=== PATIENT | female | born 2000 | race Caucasian/White ===

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

== ENCOUNTER 2025-02-06 01:20 | Emergency (ER) | payer OTHER, SELFPAY ==
--- NOTE | ~2025-02-06 | CT_ITS ---
CT of the Abdomen and Pelvis: Indication: Abdominal pain, status post Technique: 2.5 mm axial scans were obtained through the abdomen and pelvis following intravenous adm inistration of 100 cc of Omnipaque 350. Dose reduction technique was used on this scan by utilizing a utomated exposure control and iterative reconstruction technique. The dose-length product (DLP) was 1 478.52 mGy-cm. Findings: Scans through the lung bases are unremarkable. The liver, spleen, pancreas, gallbladder, adrenals and right kidney are within normal limits. 2 mm no nobstructing left renal stone present. No evidence of aortic aneurysm. No lymphadenopathy. No bowel obstruction or bowel wall thickening. There is no evidence to suggest acute appendicitis. Images through the pelvis were performed. Urinary bladder unremarkable. Uterus is prominent, compatib le with recent section. Probable small amount of blood products in the endometrial cavity. S mall fluid collections present along the anterior abdominal wall at the lower abdomen, compatible wit h small seromas related to recent section. Impression: Probable expected post section changes with prominent uterus and small amount of blood produ cts in the endometrial cavity, as well as small seromas along the lower anterior abdominal wall. 2 mm nonobstructing left renal stone. Reviewed, dictated and finalized at location M. Impression: Probable expected post section changes with prominent uterus and small amount of blood products in the endometrial cavity, as well as small seromas a long the lower anterior abdominal wall. 2 mm nonobstructing left renal stone.
--- OUTSIDE RECORDS SUMMARY | 2025-02-06 01:23 | XMS_ITS | Clinical Summary ---
Author Organization [facility] [employer] Address [address] [place] [address] Care Team Providers Care Surgical Coordinator Name Role Phone Nicholas Howell MD Primary Care Provider Source Comments [facility] [employer] [facility],non-owned Affiliates and Associated Physician Practices is amultiple site organization consisting of ambulatory clinics and hospital sitesin [place], [place], [place] and [place]. This disclosure is being madepursuant to the Care Everywhere program and may not contain all information available regarding this patient. Last updated 18.[employer] [facility] Allergies No known active allergies Medications * Be aware that medications may not be up to date on this document. Alwaysverify current medications with the patient. naproxen sodium (ALEVE) 220 MG tabletIndication s:Knee pain Take 220 mg by mouth 2 times daily as needed. 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 Gender Identity Not on file Sexual Orientation Not on file Plan of Treatment Health Maintenance Due Date Last Done Comments HIV SCREENING 2016 HPV VACCINE (1 - 3-dose series) 2016 CHLAMYDIA/GONORRHEA SCREENING 2017 MENINGOCOCCAL (Group B) VACC INE SHARED DECISION-MAKING (1 of 2 - Standard) 2017 HEPATITIS C SCREENING 04/11/2019 DTAP/TDAP/TD VACCINES (1 - Tdap) 2020 HEPATITIS B VACCINE (1 of 3 - 19+ 3-dose series) 2020 COVID-19 VACCINE (1 - 2023-2 5 season) 2024 DEPRESSION SCREENING 09/13/2024 INFLUENZA VACCINE (Season Ended) 2025 ZOSTER VACCINE (1 of 2) 2051 HIB VACCINE Aged Out No longer eligi ble based on patient's age to complete this topic MENINGOCOCCAL GROUPS A/C/Y/W VACCINE Aged Out No longer eligible b ased on patient's age to complete this topic PNEUMOCOCCAL VACCINE Aged Out No long er eligible based on patient's age to complete this topic Care Teams Surgical Coordinator Relationship Specialty Start Date End Date Nicholas Howell MD [address] [place] [id number] PCP - General Family Medicine 08/15/12
--- OUTSIDE RECORDS SUMMARY | 2025-02-06 01:23 | XMS_ITS | Referral Summary ---
Author Organization [facility] Address [address] [place] [id number] Care Team Providers Care Title Checker Name Role Phone Ciarra Herrera MD Primary Care Provider Allergies No known active allergies Medications sertraline (ZOLOFT) 100 mg tablet Take 1 tablet (100 mg total) by mouth daily 01/28/2024 Active phentermine 37.5 mg capsule Take 1 capsule (37.5 mg total) by mouth daily 04/02/2024 Active Active Problems No known active problems Social History Tobacco Use Types Packs/Day Years Used Date Smoking Tobacco: Never Assessed Comments Unknown Sex and Gender Information Value Date Recorded Sex Assigned at Not on file Legal Sex Female 4:01 PM CDT Gender Identity Not on file Sexual Orientation Not on file Last Filed Vital Signs Vital Sign Reading Time Taken Comments Blood Pressure 112/78 05/18/2024 11:00 AM CDT Pulse 102 05/18/2024 11:00 AM CDT Temperature 36.8 C (98.3 F) 05/18/2024 11:00 AM CDT Respiratory Rate 18 05/18/2024 11:00 AM CDT Oxygen Saturation 97% 05/18/2024 11:00 AM CDT Inhaled Oxygen Concentration - - Weight 103 kg (227 lb 1.6 oz) 05/18/2024 11:00 A M CDT Height 160 cm (5' 2.99) 05/18/2024 11:00 AM CDT Body Mass Index 40.24 05/18/2024 11:00 AM CDT Plan of Treatment Not on file Insurance [facility] Address: [address] [place] [id number] [facility] [employer] Address: [address] [place] [id number] Care Teams Title Checker Relationship Specialty Start Date End Date Ciarra Herrera MD [address] [place] [address] PCP - General Family Medicine 05/03/24
--- OUTSIDE RECORDS SUMMARY | 2025-02-06 01:23 | XMS_ITS | Clinical Summary ---
Author Organization [facility] Address [address] [place] [phone] Care Team Providers Care Air Pollution Specialist Name Role Phone Ciarra Herrera MD Primary [...] on file Sexual Orientation Not on file Obstetrics History Last Filed Vital Signs Vital Sign Reading [...] 05/18/2024 11:00 AM CDT Plan of Treatment Health Maintenance Due Date Last Done Comments Cervical Cancer Screening 2001 Depression Screening 2001 Hepatitis C Screening 2001 Varicella Vaccines (1 of 2 - 13+ 2-dose series) 2014 HPV Vaccines (1 - 3-dose series) 2016 Meningococcal B Vaccine (1 o f 2 - Standard) 2017 Regular Well Visit/Exam 18-64 2019 Influenza Vaccine (Season Ended) 2025 08/19/2020, 07/03/2020, 06/28/2009 DTaP/Tdap/Td Vaccine (9 - Td or Tdap) 06/13/2030 06/13/2020, 05/08/2020, 05/05/2012, Additional history exists Hepatitis B Screening Completed 11/03/2002 , 2001, 2001 Pneumococcal vaccine <65 Completed 003, 04/18/2002, 2001, Additional history exists Insurance [facility]US [facility] Care Teams Air Pollution Specialist Relationship Specialty Start Date End Date Ciarra Herrera MD [address] [place] [address] PCP - General Family Medicine 05/03/24
[2025-02-06 01:30] VITALS: BP 140/91; PULSE 73; RESP 19; TEMP 36.7; O2SAT 100
--- NOTE | 2025-02-06 01:31 | ED_ITS ---
HPI - Abdominal Pain General Chief Complaint: Abdominal Pain Stated Complaint: abd pain post c section Time Seen by Provider: 02/06/25 01:29 Source: patient and family Mode of arrival: ambulatory Limitations: no limitations History of Present Illness HPI narrative: female who is approximately 1 week post op from section presents with low abdominal pain. Had had a wound vac in place that was due to come out today/tomorrow but the dressing got wet and it was removed early. Previous delivery had been vaginal. Indication for C section was the size of the baby (9lb, 1 oz). She reports a complication of hemorrhage at the time of C section but did not require blood transfusion. No feverss, chills, nausea, or vomiting. Delivered [facility] Lily Huang Dr/Brisa. Has had increasing pain over the past 2 days making it dificult to stand. Described as a burning/sharp sensation along bilateral sides of incision scar. LBM yesterday. No constipation. Normal vaginal discharge/lochia, denies it being foul smelling. Discharged with gabapentin 3 days and oxy which she states didn't help. She states she didn't want to take the oxy, still has a few left. Related Data Allergies Allergy/AdvReac Type Severity Reaction Status Date / Time No Known Allergies Allergy Unknown Unverified 01/06/13 18:08 [facility] Past Medical History Medical History History of vaginal delivery Surgical History Surgical History History of section 01/29/25 Social History Social History Living arrangements: with family Additional living arrangements comments: partner and 2 children Exam 2 Narrative: GENERAL: Well-appearing, well-nourished, and in no acute distress. HEAD: Normocephalic, atraumatic. EYES: Non injected, non icteric ENT: Nares clear, no rhinorrhea or epistaxis. Gross auditory acuity intact. NECK: Supple. No meningismus. CHEST: Speaking in full sentences. No respiratory distress. HEART: Regular rate and rhythm. . ABDOMEN: Obese but Soft, nondistended. Incision scar well healing without erythema, induration, purulent discharge. Patient tender at the lateral most areas of this horizontal incision site. Not peritoneal EXTREMITIES: Normal range of motion. No lower extremity edema. SKIN: Warm, dry, no rash. NEURO: No focal deficits. Alert and oriented. Answering questions. Following commands. Normal speech without aphasia or dysarthria. PSYCH: Congruent mood and affect. Course Vital Signs Vital signs: Vital Signs Temperature 98.1 F 02/06/25 01:30 Pulse Rate 73 02/06/25 01:30 Respiratory Rate 19 02/06/25 01:30 Blood Pressure 140/91 H 02/06/25 01:30 Pulse Oximetry 100 02/06/25 01:30 Oxygen Delivery Room Air 02/06/25 01:30 Temperature 98 F 02/06/25 08:52 Pulse Rate 74 02/06/25 08:52 Respiratory Rate 18 02/06/25 08:52 Blood Pressure 115/72 02/06/25 08:52 Pulse Oximetry 99 02/06/25 08:52 Oxygen Delivery Room Air 02/06/25 01:30 MDM - Abdominal Pain MDM Narrative Medical decision making narrative: Patient presents with post operative abdominal pain after a C section approximately 1 week ago performed at [facility] Sal with Lily Denny/Brisa. In the emergency department she is afebrile with acceptable vital signs. No leukocytosis. She has a normocytic anemia with no prior for comparison. Patient had initially stated her vaginal discharge seems similar to after her 1st delivery, normal lochia. Upon return from urinating, she does tell the nurse that it seems different now. States she noticed it had some green in it. Urinalysis slightly abnormal but without marked infection. Reflexes to culture. She does endorse some dysuria in urinary urgency/frequency but denies any hematuria. Given questionably symptomatic, will treat, but await ct abd / pelvis to see if broader spectrum antibiotics may be indicated. Patient having pain again. Additional analgesic medication ordered. Patient is already scheduled to follow up with her Ob Gyne later today. Spoke with [facility] Dr Uziel Bautista content producer 07:43: Concurs with management including keeping today's follow up appointment and deferring given antibiotics until urine culture results. A disc of imaging was made for patient to take to appointment today. Upon discharge, patient did want discuss further. I informed her that I had talked with the on-call Ob Gyne. She does clarify that she had said that she didn't want to take her oxy but she had and only had 1 pill and knows she is going to be in pain when she stands. Will prescribe additional oxy and acetaminophen. Also prescribed docusate. Differential Diagnosis Differential diagnosis: Likely abdominal pain, constipation and other (routine incision pain, seroma/hematoma/complication such as abscess; considered endometritis; considered anemia ) Lab Data Attestation: I reviewed the patient's lab results. 02/06/25 01:44 02/06/25 01:44 Labs: Lab Results 02/06/25 02/06/25 02/06/25 Range/Units 01:44 02:53 02:55 WBC 7.8 (4.5-10.0) K/mm3 RBC 3.28 L (4.2-5.4) M/mm3 Hgb 8.9 L (12.0-15.0) g/dL Hct 29.1 L (37.0-47.0) % MCV 88.7 (80-100) fl MCH 27.1 (26-34) pg MCHC 30.6 L (32-36) g/dl RDW 13.2 (11.5-14.5) % Plt Count 264 (150-375) k/mm3 MPV 9.6 (7.4-10.4) fl Immature Gran % (Auto) 1.2 H (0-0.5) % Neut % (Auto) 58.4 (45.5-73.1) % Lymph % (Auto) 30.3 (18.3-44.2) % [place] % (Auto) 7.6 (2.6-8.5) % Eos % (Auto) 2.2 (0-4.4) % Baso % (Auto) 0.3 (0.2-1.2) % Lymph # (Auto) 2.36 (0.9-3.2) K/mm3 [place] # (Auto) 0.6 (0.1-0.6) K/mm3 Eos # (Auto) 0.2 (0-0.3) K/mm3 Baso # (Auto) 0.0 (0.0-0.1) K/mm3 Abs Immat Gran (auto) 0.09 H (0.00-0.031) K/mm3 Absolute Neuts (auto) 4.6 (1.3-6.7) K/mm3 Absolute Nucleated RBC 0.000 (0.0-0.012) K/mm3 Nucleated RBC % 0.0 (0.0-0.2) % Sodium 136 L (137-145) mmol/L Potassium 4.1 (3.4-5.0) mmol/L Chloride 106 (98-107) mmol/L Carbon Dioxide 23 (22-30) mmol/L Anion Gap 7 (4-12) mmol/L BUN 26 H (7-17) mg/dL Creatinine 0.65 L (0.7-1.0) mg/dL Estim Creat Clear Calc 134 ml/min Estimated GFR > 60 (59 - ) Glucose 89 (65-110) mg/dL Calcium 8.8 (8.4-10.2) mg/dL Total Bilirubin 0.3 (0.2-1.3) mg/dL AST 25 (14-36) U/L ALT 20 (6-35) U/L Alkaline Phosphatase 123 (38-126) U/L Total Protein 7.0 (6.3-8.2) g/dL Albumin 3.7 (3.5-5.1) g/dL Lipase 123 (23-300) U/L Urine Color Yellow (Yellow) Urine Appearance Clear (Clear) Urine pH 5.5 (5.0-9.0) Ur Specific [place] 1.026 (1.001-1.035) Urine Protein Negative (Negative) mg/dL Urine Glucose (UA) Negative (Negative) mg/dL Urine Ketones Negative (Negative) mg/dL Ur Blood (Man) 2+ H (Negative) Urine Nitrate Negative (Negative) Urine Bilirubin Negative (Negative) Urine Urobilinogen 1.0 (<2.0) mg/dL Leukocyte Esterase Rfl Trace H (Negative) CRYS/UL Urine RBC 11-20 H (0-2) /hpf Urine WBC 6-10 H (0-3) /hpf Ur Squamous Epith Cells Occasional (Few) /hpf Urine Bacteria Rare /hpf Urine Casts 0-2 POC Urine HCG, Qual Negative (Negative) Imaging Data Radiologist's impression: ITS Impressions Abdomen/Pelvis CT 02/06/25 06:29 Impression: Probable expected post section changes with prominent uterus and small amount of blood products in the endometrial cavity, as well as small seromas along the lower anterior abdominal wall. 2 mm nonobstructing left renal stone. Discharge Plan Discharge Clinical Impression: Normocytic anemia, Pain following delivery, Abnormal urinalysis, Abdominal wall seroma Patient Disposition: Home Condition: Stable Instructions: Antibiotic Form, Anemia (ED), Seroma (DC) Additional Instructions: I discussed you with The on-call Ob Gyne for Dr Ledezma's practice who confirmed that you should keep your already scheduled Post-operative/C section follow up appointment with your ObGyn today. Continue taking the pain medications you were prescribed. You had some slight abnormalities on your urinalysis but will await the culture to see if it appears to be a true urinary tract infection which the OBGYN agreed with. You are being given a disc with your images from the CT scan that was performed today that you can take with you. Return to the emergency department with any new, worsening, or unmanaged symptoms. While on opiate medications, you should be on a bowel regimen (e.g. stool softer). If one was not prescribed already, a prescription has been provided. Patient Language: German Prescriptions: New docusate sodium 100 mg capsule 100 mg PO DAILY Qty: 14 0RF acetaminophen 500 mg capsule 1,000 mg PO Q6H PRN (Reason: pain) Qty: 30 0RF oxycodone 5 mg capsule 5 mg PO Q8H PRN (Reason: pain) Qty: 10 0RF Follow-up/Referrals: UNKNOWN,DOCTOR [Non-Staff] - Stand Alone Forms: Work/School Release IP Time of Disposition: 07:50
[2025-02-06 01:49] LABS: Basophils Percent Auto 0.3 % (0.2-1.2); Eosinophils Absolute Auto 0.2 K/mm3 (0-0.3); Eosinophils Percent Auto 2.2 % (0-4.4); Hematocrit 29.1 % (37.0-47.0); Hemoglobin 8.9 g/dL (12.0-15.0); Immature Granulocyte Absolute 0.09 K/mm3 (0.00-0.031); Immature Granulocyte Percent A 1.2 % (0-0.5); Lymphocytes Absolute Auto 2.36 K/mm3 (0.9-3.2); Lymphocytes Percent Auto 30.3 % (18.3-44.2); Mean Corpuscular HGB Conc 30.6 g/dl (32-36); Mean Corpuscular Hemoglobin 27.1 pg (26-34); Mean Corpuscular Volume 88.7 fl (80-100); Mean Platelet Volume 9.6 fl (7.4-10.4); Monocytes Absolute Auto 0.6 K/mm3 (0.1-0.6); Monocytes Percent Auto 7.6 % (2.6-8.5); Neutrophils Absolute Auto 4.6 K/mm3 (1.3-6.7); Neutrophils Percent Auto 58.4 % (45.5-73.1); Platelet Count Result 264 k/mm3 (150-375); Red Blood Count 3.28 M/mm3 (4.2-5.4); Red Cell Distribution Width 13.2 % (11.5-14.5); White Blood Count 7.8 K/mm3 (4.5-10.0)
--- OUTSIDE RECORDS SUMMARY | 2025-02-06 01:51 | XMS_ITS | Referral Summary ---
Author Organization [facility] Address [address] [place] [phone] Care Team Providers Care Air Bag Curer Name Role Phone Ciarra Herrera MD Primary [...] Plan of Treatment Not on file Insurance Care Teams Air Bag Curer Relationship Specialty Start Date End Date Ciarra Herrera MD [address] [place] [address] PCP - General Family Medicine 05/03/24
--- OUTSIDE RECORDS SUMMARY | 2025-02-06 01:51 | XMS_ITS | Clinical Summary ---
Author Organization [facility] Address [address] [place] [id number] Care Team Providers Care C4 Planner Name Role Phone Ciarra Herrera MD Primary [...] 2001, Additional history exists Insurance CHOICE PLUS [facility] CHOICE PLUS Care Teams C4 Planner Relationship Specialty Start Date End Date Ciarra Herrera MD [address] [place] [address] PCP - General Family Medicine 05/03/24
--- OUTSIDE RECORDS SUMMARY | 2025-02-06 01:51 | XMS_ITS | Clinical Summary ---
Author Organization [facility] [employer] Address [address] [place] [address] Care Team Providers Care Photographic Equipment Mechanic Name Role Phone Nicholas Howell MD Primary Care Provider Source Comments [facility] [employer],non-owned Affiliates and Associated Physician Practices is amultiple site organization consisting of ambulatory clinics and hospital sitesin [place], [place], [place] and [place]. This disclosure is being madepursuant to the Care Everywhere program and may not contain all information available regarding this patient. 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
[2025-02-06 02:01] LABS: Alanine Aminotransferase 20 U/L (6-35); Albumin Level 3.7 g/dL (3.5-5.1); Alkaline Phosphatase 123 U/L (38-126); Anion Gap 7 mmol/L (4-12); Aspartate Amino Transferase 25 U/L (14-36); Bilirubin,Total 0.3 mg/dL (0.2-1.3); Blood Urea Nitrogen 26 mg/dL (7-17); Calcium 8.8 mg/dL (8.4-10.2); Carbon Dioxide 23 mmol/L (22-30); Chloride 106 mmol/L (98-107); Estimated CRCL calculation 134 ml/min; Estimated Glomerular Filt Rate > 60; Glucose 89 mg/dL (65-110); Lipase 123 U/L (23-300); Potassium 4.1 mmol/L (3.4-5.0); Sodium 136 mmol/L (137-145)
[2025-02-06] MEDS: ONDANSETRON INJ 4 MG/2 ML VIAL IV PUSH (02:13)
[2025-02-06] MEDS: HYDROmorphone HCL INJ (*CRX) 2 MG/ML VIAL 0.5 MG IV PUSH ×2 (02:13→05:10)
[2025-02-06 02:57] LABS: BEDSIDEPREGUCG Negative (Negative)
[2025-02-06 03:06] LABS: Add Urine Microscopic? YES; Appearance Urine Clear (Clear); Bacteria Urine Rare /hpf; Bilirubin Urine Negative (Negative); Blood Urine 2+ (Negative); Color Urine Yellow (Yellow); Glucose Urine UA Negative (Negative); Ketones Urine Negative (Negative); Leukocyte Esterase Ur Trace LEU/UL (Negative); Nitrate Urine Negative (Negative); Non Pathogenic Casts 0-2; Protein Urine Negative (Negative); Specific Grav Ur 1.026 (1.001-1.035); Squamous Epithelial Cell Urine Occasional /hpf (Few); pH Urine 5.5 (5.0-9.0)
[2025-02-06 04:15] VITALS: BP 121/71; PULSE 79; RESP 16; O2SAT 98
[2025-02-06 06:27] VITALS: BP 115/57; PULSE 77; RESP 16; TEMP 36.8; O2SAT 95
[2025-02-06] MEDS: HYDROmorphone HCL INJ (*CRX) 2 MG/ML VIAL 1 MG IV PUSH (08:46)
[2025-02-06 08:52] VITALS: BP 115/72; PULSE 74; RESP 18; TEMP 36.6; O2SAT 99
== END 2025-02-06 09:00 | disposition home or self-care (01) ==
PROVIDERS: Emergency Provider Student in an Organized Health Care Education/Training Program; PCP Family Medicine
DX: O90.2 Hematoma of obstetric wound (principal); O99.893 Other specified diseases and conditions complicating puerperium; G89.18 Other acute postprocedural pain; R10.30 Lower abdominal pain, unspecified; O90.81 Anemia of the puerperium; D64.9 Anemia, unspecified; R82.998 Other abnormal findings in urine; N20.0 Calculus of kidney
CPT/HCPCS: 36415; 74177; 80053; 81001; 81025; 83690; 85025; 87086; 96374; 96375; 96376; 99284; J1171; J2405; Q9967